=== PATIENT | male | born 1940 | race Caucasian/White ===

== ENCOUNTER 2021-01-26 19:04 | Emergency (ER) | payer OTHER ==
[~2021-01-26 19:04] MED LIST: ALLOPURINOL 30300 MG PO; ASPIR 8181 MG PO; ATORVASTATIN CA20 MG PO; CLOTRIMAZOLE-BE30 ML TOP; CYCLOBENZAPRINE10 MG PO; DEXILANT60 MG PO; DIFLUCAN150 MG PO; HALOBETASOL PRO15 GM TOP; HCTZ12.5 MG PO; METOPROLOL TART50 M1 PO; NAPROXEN500 MG PO; NORCO 5-325 TA1 EACH PO; NORVASC5 MG PO; NYSTATIN OINTME30 GM TOP; ONDANSETRON ODT4 MG PO; PREDNISONE 10MG10 MG PO; PREDNISONE20 MG PO; SENNA-S TABLET1 EACH PO; XANAX0.5 MG PO; ZOFRAN4 MG PO
== END 2021-01-26 22:15 | disposition home or self-care (01) ==
LOC: FER 19:04
DX: K94.23 Gastrostomy malfunction (principal); I10 Essential (primary) hypertension
CPT/HCPCS: 74018